=== PATIENT | female | born 1960 | race Hispanic/Latino ===

== ENCOUNTER → 2022-01-29 10:20 | Outpatient (CLI) | payer OTHER, SELFPAY ==
[2022-01-29 11:24] LABS: COVID19 -Nasal RAPID Negative (Negative)
--- NOTE | 2022-01-30 19:09 | DI.NM.S_ITS ---
DATE OF SERVICE: 01/29/2022 PROCEDURE: Exercise perfusion study. INDICATION: Palpitation with underlying hypertension and hyperlipidemia. RADIOPHARMACEUTICAL: 26.7 millicurie technetium-99m Myoview IV was injected at stress and 27.1 millicurie technetium-99m Myoview IV was injected at rest. CARDIAC STRESS: The patient underwent exercise perfusion study under the supervision of an attending staff. She walked on Luca protocol for 4 minutes and 01 seconds. She had shortness of breath and could not keep up with treadmill hence it was stopped. Baseline blood pressure was 132/90 mmHg. Peak blood pressure 174/102 mmHg. The patient achieved 95 percent of target heart rate, 7 METs of workload and functional aerobic impairment positive 37 percent. Baseline rhythm was sinus with sinus bradycardia, rate about 57. During stress, there were no convincing ischemic changes seen. No significant arrhythmias seen. No chest discomfort. However, had shortness of breath. RAW DATA: Breast shadow was seen. GATED STUDY: Hyperdynamic LV function with resting LV ejection fraction 91 percent and stress LV ejection fraction 94 percent without any regional wall motion abnormalities. Resting end-diastolic volume 58 mL. TID ratio 0.87, which is within normal limits. Lung/heart ratio 0.43, which is within normal limits. MYOCARDIAL PERFUSION SCAN: Stress supine, resting supine and stress prone images were compared to each other. The stress and resting supine images revealed moderate-size, moderately decreased perfusion of mid to distal anterior wall, as well as anteroapex, which got completely resolved during stress prone images, suggestive of breast tissue attenuation artifact. The stress prone images revealed normal myocardial perfusion. CONCLUSION: 1. This is a normal myocardial perfusion study with evidence of breast tissue attenuation artifact, which got resolved during stress prone images. 2. Diminished exercise tolerance. Functional aerobic impairment positive 30 percent and 7 metabolic equivalents of workload. 3. Hypertensive blood pressure response. Peak blood pressure 174/102 mmHg. 4. No obvious ischemic changes. No chest pain, however had moderate shortness of breath. As far as perfusion scan is concerned, this is a low-risk myocardial perfusion scan. Correlate clinically. Kanika Andersen - Stevie doc#: [id number]/job#: [id number] dd: 01/30/2022 17:05:00 dt: 01/30/2022 18:18:00 DICTATING MD/COPIES TO: Zbigniew Das MD COPIES MNE: MARIPOSA;
== END ==
PROVIDERS: PCP Physician Assistant; Referring Provider Internal Medicine Cardiovascular Disease; Visit Provider Internal Medicine Cardiovascular Disease
DX: R00.2 Palpitations (principal); I10 Essential (primary) hypertension; E78.5 Hyperlipidemia, unspecified; Z20.822 Contact with and (suspected) exposure to COVID-19
CPT/HCPCS: 78452; 87635; 93017; A9502

== ENCOUNTER 2023-03-28 11:56 | Emergency (ER) | payer OTHER, SELFPAY ==
[2023-03-28 12:00] VITALS: BP 161/91; PULSE 99; O2SAT 99
[2023-03-28 12:08] VITALS: BP 161/91; PULSE 95; RESP 14; TEMP 36.8; O2SAT 100; BMI 42.5
[2023-03-28 12:30] VITALS: BP 156/93; PULSE 91; O2SAT 100
--- NOTE | 2023-03-28 12:34 | ED.ARRPALP ---
HPI - Arrhythmia/Palpitations General Chief Complaint: Arrhythmia/Palpitations Stated Complaint: arrhythmia Time Seen by Provider: 03/28/23 12:01 Source: patient and EMS Mode of arrival: EMS Limitations: no limitations History of Present Illness HPI narrative: Patient is a 62-year-old female. Has had many years of occasional palpitations that have always resolved on their own. She has been evaluated by Cardiology. She is worn Holter monitors. The palpitations have never been caught on a monitor. She states that she had an appointment today scheduled with her primary doctor. She was at her normal state of health. Was in the waiting room when she started to feel like her heart was beating fast. At the time she did have a headache and some pain behind her right eye but all those symptoms have now resolved. She was brought back to the exam room. She would an EKG performed which did show a supraventricular tachycardia with a heart rate in the 180s. EMS was contacted. She did receive 6 mg of adenosine prior to arrival which seems to have converted her to a normal sinus rhythm. She is now asymptomatic. Related Data Previous Rx's Medication Instructions Recorded propranolol 10 mg tablet 10 mg PO BID PRN Palpitations #14 03/28/23 tabs Review of Systems Constitutional Constitutional: Reports system reviewed and no additional complaints, except as documented Cardiovascular Cardiovascular: Reports system reviewed and no additional complaints, except as documented Respiratory Respiratory: Reports system reviewed and no additional complaints, except as documented Gastrointestinal Gastrointestinal: Reports system reviewed and no additional complaints, except as documented Integumentary/Breasts Skin/Breast: Reports system reviewed and no additional complaints, except as documented Hematologic/Lymphatic On Anticoagulants: No Patient History Social History Smoking Status: Never smoker Smoking Status: Never smoker Substance Use Type: does not use Exam Initial Vital Signs Initial Vital Signs: Vital Signs Temperature 98.3 F 03/28/23 12:08 Pulse Rate 95 H 03/28/23 12:08 Respiratory Rate 14 03/28/23 12:08 Blood Pressure 161/91 H 03/28/23 12:08 Pulse Oximetry 100 03/28/23 12:08 Oxygen Delivery Method Room Air 03/28/23 12:08 Const General: cooperative, comfortable and No ill appearing HENMT Head: normal to inspection and normocephalic Resp Effort & Inspection: normal respiratory effort Auscultation: clear to auscultation bilaterally Cardio Rate: regular rate Rhythm: regular rhythm GI Inspection: normal to inspection Skin General: no rashes or lesions noted Neuro General: patient alert, patient awake and moves all extremities Extrem General: normal to inspection and capillary refill normal Course Orders Ordered: ED Orders 03/28/23 12:08 EKG-12 Lead Stat 03/28/23 12:23 Complete Blood Count AUTO DIFF Stat Comprehensive Metabolic Panel Stat Lipase Stat Magnesium Stat Vital Signs Vital signs: Vital Signs - 8 hr 03/28/23 12:08 Temperature 98.3 F Pulse Rate 95 H Respiratory Rate 14 Blood Pressure 161/91 H Pulse Oximetry 100 Oxygen Delivery Method Room Air MDM - Arrhythmia/Palpitations Lab Data Attestation: I reviewed the patient's lab results. 03/28/23 12:23 03/28/23 12:23 Labs: Lab Results 03/28/23 Range/Units 12:23 WBC 6.2 (4.5-11.0) X10^3/uL RBC 4.30 (4.0-5.2) X10^6/uL Hgb 12.7 (12.0-16.0) g/dL Hct 37.6 (36-46) % MCV 87.5 (80-100) fL MCH 29.6 (26-34) PG MCHC 33.8 (30-36) % RDW 14.5 (11.6-14.8) % Plt Count 257 (150-400) X10^3/uL Neut % (Auto) 68.7 (50-75) % Lymph % (Auto) 21.4 L (25-40) % [place] % (Auto) 6.3 (3-14) % Eos % (Auto) 3.0 (2-4) % Baso % (Auto) 0.6 (0-2) % Neut # (Auto) 4300 (4294-8099) /uL Lymph # (Auto) 1300 (6998-8364) /uL [place] # (Auto) 400 (0-900) /uL Eos # (Auto) 200 (0-450) /uL Baso # (Auto) 0 (0-100) /uL Sodium 140 (137-145) mmol/L Potassium 4.3 (3.4-5.1) mmol/L Chloride 106 (98-107) mmol/L Carbon Dioxide 27 (22-32) mmol/L BUN 13 (7-17) mg/dL Creatinine 0.73 (0.52-1.04) mg/dL Estimated GFR > 60 (>60) mL/min BUN/Creatinine Ratio 17.8 (6-22) Glucose 104 (80-110) mg/dL Calcium 9.2 (8.4-10.2) mg/dL Magnesium 2.4 H (1.6-2.3) mg/dL Total Bilirubin 0.4 (0.2-1.3) mg/dL AST 38 H (14-36) IU/L ALT 24 (<35) IU/L Alkaline Phosphatase 88 (38-126) U/L Total Protein 7.6 (6.3-8.2) g/dL Albumin 4.2 (3.5-5.0) g/dL Globulin 3.4 (1.7-4.1) g/dL Albumin/Globulin Ratio 1.2 (1.0-2.8) Lipase 115 (23-300) U/L ECG Data Attestation: I personally reviewed and interpreted this ECG as follows: Interpretation: Sinus rhythm Ventricular rate 94 Normal axis Normal QRS Normal QTC No ST T wave changes MDM Narrative Medical decision making narrative: Patient has been in sinus rhythm with a heart rate less than 100 beats per minute since arrival here to the ER although the EKG that I evaluated earlier and per EMS shows that she most likely was in SVT. It appears the adenosine has helped. Plan will be to discharge her home with a prescription for propranolol that she can take as needed. She states that sometimes these palpitations happened twice a week and sometimes she can go many months in between the episodes. She may eventually end up on a daily beta-marcos but will have her contact her form setter helper to discuss this. She was given a copy of her EKGs that she can take to her form setter helper. She was given return precautions. She expressed understanding and agreement. Discharge Plan Departure Patient Disposition: Home Clinical Impression: Supraventricular tachycardia Instructions: DI for Paroxysmal Supraventricular Tachycardia Activity Restrictions/Additional Instructions: I recommend that you contact your form setter helper for a follow-up. Take the EKGs that you were given a copy of today to that appointment. Take the propranolol as needed. Return to the emergency department for new or worsening symptoms. Prescriptions: New propranolol 10 mg tablet 10 mg PO BID PRN (Reason: Palpitations) Qty: 14 0RF Referrals: Candy Pickard [employer] [Primary Care Provider] - Stand Alone Forms: Patient Portal/API
[2023-03-28 12:37] LABS: Add Manual Diff / Slide Review NO; Basophils Absolute Auto 0 /uL (0-100); Basophils Percent Auto 0.6 % (0-2); Eosinophils Absolute Auto 200 /uL (0-450); Hematocrit 37.6 % (36-46); Hemoglobin 12.7 g/dL (12.0-16.0); Lymphocytes Absolute Auto 1300 /uL (1100-4500); Lymphocytes Percent Auto 21.4 % (25-40); Mean Corpuscular HGB Conc 33.8 % (30-36); Mean Corpuscular Hemoglobin 29.6 PG (26-34); Mean Corpuscular Volume 87.5 fL (80-100); Monocytes Absolute Auto 400 /uL (0-900); Monocytes Percent Auto 6.3 % (3-14); Neutrophils Absolute Auto 4300 /uL (1500-7000); Neutrophils Percent Auto 68.7 % (50-75); Platelet Count 257 X10^3/uL (150-400); Red Cell Distribution Width 14.5 % (11.6-14.8); White Blood Cell Count 6.2 X10^3/uL (4.5-11.0)
[2023-03-28 13:00] VITALS: BP 146/87; PULSE 91; O2SAT 98
[2023-03-28 13:15] LABS: Alanine Aminotransferase 24 IU/L (<35); Albumin 4.2 g/dL (3.5-5.0); Albumin Globulin Ratio 1.2 (1.0-2.8); Alkaline Phosphatase 88 U/L (38-126); Aspartate Aminotransferase 38 IU/L (14-36); BUN Creatinine Ratio 17.8 (6-22); Bilirubin Total 0.4 mg/dL (0.2-1.3); Blood Urea Nitrogen 13 mg/dL (7-17); Calcium 9.2 mg/dL (8.4-10.2); Carbon Dioxide 27 mmol/L (22-32); Chloride 106 mmol/L (98-107); Estimated Glomerular Filt Rate > 60 mL/min (>60); Globulin 3.4 g/dL (1.7-4.1); Glucose 104 mg/dL (80-110); HEMOLYSIS < 15 (0-50); Lipase 115 U/L (23-300); Potassium 4.3 mmol/L (3.4-5.1); Sodium 140 mmol/L (137-145); Total Protein 7.6 g/dL (6.3-8.2)
[2023-03-28 13:16] LABS: Magnesium 2.4 mg/dL (1.6-2.3)
[2023-03-28 13:30] VITALS: BP 144/80; PULSE 85; O2SAT 99
[2023-03-28 13:45] VITALS: TEMP 36.8
== END 2023-03-28 13:47 | disposition home or self-care (01) ==
PROVIDERS: Emergency Provider Emergency Medicine; PCP Nurse Practitioner Family; Referring Provider Emergency Medicine
DX: I47.10 Supraventricular tachycardia, unspecified (principal)
CPT/HCPCS: 36415; 80053; 83690; 83735; 85025; 93005; 93010; 99283; 99284